=== PATIENT | female | born 1960 | race Hispanic/Latino ===

== ENCOUNTER → 2019-01-14 | Outpatient (CLI) | payer OTHER ==
[~2019-01-14] MED LIST: ASPI-1181 PO; ATOR20TA65 PO; CANA300T PO; CLOP75TA32 PO; IRBE1TAB43 PO; LATA7.5D OP; METF-444 PO
== END | disposition home or self-care (01) ==
LOC: OIH 12:23
PROVIDERS: ATTEND Internal Medicine Cardiovascular Disease
DX: Z13.6 Encounter for screening for cardiovascular disorders (principal)
CPT/HCPCS: 75571

== ENCOUNTER 2019-02-14 05:36 | Day surgery (SDC) | payer BC ==
[2019-02-12 13:59] VITALS: BP 119/68
[2019-02-12 14:05] LABS: BASOPHILS % (AUTO) 0.8 % (0.0-5.0); HEMATOCRIT 43.3 % (36-48); LYMPHOCYTES % (AUTO) 30.8 % (21.0-51.0); MEAN CORPUSCULAR HEMOGLOBIN 30.2 pg (27.0-33.0); MEAN CORPUSCULAR HGB CONC 34.1 g/dL (32.0-36.0); MEAN CORPUSCULAR VOLUME 88.7 fL (79-99); MONOCYTES % (AUTO) 5.3 % (3.0-13.0); NEUTROPHILS % (AUTO) 60.1 % (40.0-77.0); PLATELET COUNT (AUTO) 250 K/uL (130-400); RED BLOOD CELL COUNT(AUTO) 4.87 MIL/uL (4.00-5.50); RED CELL DISTRIBUTION WIDTH 13.7 % (11.0-15.5); WHITE BLOOD COUNT (AUTO) 5.1 K/uL (4.8-10.8)
[2019-02-12 14:08] LABS: APPEARANCE,URINE Clear (CLEAR); BILIRUBIN,URINE Negative (NEGATIVE); COLOR,URINE Yellow (YELLOW); GLUCOSE, URINE (UA) >=1000 mg/dL (NEGATIVE); KETONES,URINE Trace mg/dL (NEGATIVE); LEUKOCYTE ESTERASE ,URINE Negative (NEGATIVE); NITRATE,URINE Negative (NEGATIVE); OCCULT BLOOD,URINE Negative (NEGATIVE); PROTEIN,URINE Negative (NEGATIVE); UROBILINOGEN,URINE 0.2 mg/dL (0.2-1.0)
[2019-02-12 14:12] LABS: CREATININE 0.6 mg/dL (0.5-1.5); POTASSIUM 4.5 mmol/L (3.5-5.1)
[2019-02-12 14:57] LABS: INR 0.91 (0.85-1.15); PARTIAL THROMBOPLASTIN TIME 22.1 SEC (26.3-35.5); PROTHROMBIN TIME 9.4 SEC (9.6-11.6)
[2019-02-12 15:25] LABS: RBC,URINE 0-1 /HPF (0-1)
[2019-02-12 15:26] LABS: BACTERIA,URINE Rare /HPF (None Seen); MUCUS,URINE Few LPF (None Seen); SQUAMOUS EPITHELIAL CELL,UR 0-2 /HPF (0-2); YEAST,URINE BUDDING Few /HPF (None Seen)
--- NOTE | 2019-02-13 14:17 | NUR ---
NOTIFIED LIZ OF PTT 22.1, BUN 20 AND UA WITH WBC 2-5, AND FEW MUCUS, NO NEW ORDERS, OKAY TO PROCEED.
[~2019-02-14] VITALS: Ht 157.5 cm; Wt 65.1 kg
[2019-02-14] VITALS (10 sets, daily range): BP systolic 97–129; BP diastolic 58–75
[~2019-02-14 05:36] MED LIST changes: +ACETAMINOPHEN 325 MG TAB PO PRN; -LATA7.5D OP; +SODIUM CHLORIDE 0.9% 500ML 500 ML IV SCH
[2019-02-14] MEDS ORDERED: LATA7.5D OP (07:06)
[2019-02-14] MEDS ORDERED: SODIUM BICARB 50MEQ 50ML VIAL ONE (07:13)
[2019-02-14] MEDS ORDERED: NITROGLYCERIN 5 MG/ML 10 ML VIAL IV ONE (07:13)
[2019-02-14] MEDS ORDERED: LIDOCAINE HCL 2% 20ML ONE (07:14)
[2019-02-14] MEDS ORDERED: IODIXANOL 320 MG/ML 100 ML VIAL ONE (07:14)
[2019-02-14] MEDS ORDERED: SODIUM CHLORIDE 0.9% 1000ML 1,000 ML IV ONE (07:20)
[2019-02-14] MEDS ORDERED: SODIUM CHLORIDE 0.9% 1000ML 1,000 ML IV SCH (08:25)
[2019-02-14] MEDS ORDERED: GLUCAGON 1MG KIT 1 MG ML IM PRN (08:30)
[2019-02-14] MEDS ORDERED: DEXTROSE 50%-WATER 50 ML DISP.SYRIN IV PRN (08:30)
[2019-02-14] MEDS ORDERED: INSULIN HUMULIN R 100 UNIT/ML 3ML ONE (09:15)
[2019-02-14] MEDS ORDERED: INSULIN HUMULIN R 100 UNIT/ML 3ML SQ SCH (11:30)
== END 2019-02-14 13:00 | disposition home or self-care (01) ==
LOC: DAH 05:36
PROVIDERS: ATTEND Internal Medicine Cardiovascular Disease
DX: I65.23 Occlusion and stenosis of bilateral carotid arteries (principal); I70.0 Atherosclerosis of aorta; E78.5 Hyperlipidemia, unspecified; E11.9 Type 2 diabetes mellitus without complications; I10 Essential (primary) hypertension; Z79.84 Long term (current) use of oral hypoglycemic drugs; Z79.82 Long term (current) use of aspirin; Z79.899 Other long term (current) drug therapy; Z90.49 Acquired absence of other specified parts of digestive tract; Z90.710 Acquired absence of both cervix and uterus; Z98.890 Other specified postprocedural states; Z82.49 Family history of ischemic heart disease and other diseases of the circulatory system; Z83.3 Family history of diabetes mellitus
CPT/HCPCS: 36223; 36415; 71045; 80048; 81001; 82948 ×2; 85025; 85610; 85730; 93005; A4215; A4216; A4221; A4222; A4223 ×3; A4606; A4663; C1760; C1894; J1644; J1815; J3490 ×3; J7030 ×2; Q9967

== ENCOUNTER → 2019-04-28 | Outpatient (CLI) | payer BC ==
[~2019-04-28] VITALS: Ht 160 cm; Wt 64.4 kg
[~2019-04-28] MED LIST changes: -ACETAMINOPHEN 325 MG TAB PO PRN; -CANA300T PO; +EMPA10TA PO; +EMPA25TA PO; +LATA7.5D OP; +SODIUM CHLORIDE 0.9% 1000ML 1,000 ML IV SCH; -SODIUM CHLORIDE 0.9% 500ML 500 ML IV SCH
[2019-04-28 13:18] LABS: BASOPHILS % (AUTO) 0.8 % (0.0-5.0); EOSINOPHILS % (AUTO) 5.9 % (0.0-8.0); LYMPHOCYTES % (AUTO) 28.3 % (21.0-51.0); MEAN CORPUSCULAR HEMOGLOBIN 29.4 pg (27.0-33.0); MEAN CORPUSCULAR HGB CONC 32.9 g/dL (32.0-36.0); MEAN CORPUSCULAR VOLUME 89.6 fL (79-99); MONOCYTES % (AUTO) 5.3 % (3.0-13.0); NEUTROPHILS % (AUTO) 59.3 % (40.0-77.0); PLATELET COUNT (AUTO) 285 K/uL (130-400); RED BLOOD CELL COUNT(AUTO) 4.69 MIL/uL (4.00-5.50); RED CELL DISTRIBUTION WIDTH 13.3 % (11.0-15.5); WHITE BLOOD COUNT (AUTO) 4.9 K/uL (4.8-10.8)
[2019-04-28 13:27] LABS: CREATININE 0.5 mg/dL (0.5-1.5); POTASSIUM 3.8 mmol/L (3.5-5.1)
[2019-04-28 13:35] VITALS: BP 123/64
[2019-04-28 13:39] LABS: APPEARANCE,URINE Clear (CLEAR); BILIRUBIN,URINE Negative (NEGATIVE); COLOR,URINE Yellow (YELLOW); GLUCOSE, URINE (UA) >=1000 mg/dL (NEGATIVE); KETONES,URINE Negative (NEGATIVE); LEUKOCYTE ESTERASE ,URINE Negative (NEGATIVE); NITRATE,URINE Negative (NEGATIVE); OCCULT BLOOD,URINE Negative (NEGATIVE); PROTEIN,URINE Negative (NEGATIVE); UROBILINOGEN,URINE 0.2 mg/dL (0.2-1.0)
[2019-04-28 13:44] LABS: INR 0.92 (0.85-1.15); PARTIAL THROMBOPLASTIN TIME 22.8 SEC (26.3-35.5); PROTHROMBIN TIME 9.7 SEC (9.6-11.6)
[2019-04-28 14:06] LABS: BACTERIA,URINE Rare /HPF (None Seen); RBC,URINE 0-1 /HPF (0-1); SQUAMOUS EPITHELIAL CELL,UR Rare /HPF (0-2); WBC,URINE 0-1 /HPF (0-1)
== END | disposition home or self-care (01) ==
LOC: DAH 10:00 → EDSTATUS 12:00
PROVIDERS: ATTEND Internal Medicine Cardiovascular Disease
DX: I65.23 Occlusion and stenosis of bilateral carotid arteries (principal)
CPT/HCPCS: 36415; 71045; 80048; 81001; 85025; 85610; 85730; 86850; 86900; 86901; 86922; 93005

== ENCOUNTER 2019-11-21 08:53 | Inpatient (IN) | payer BC ==
[2019-11-19 10:26] LABS: BASOPHILS % (AUTO) 0.5 % (0.0-5.0); EOSINOPHILS % (AUTO) 2.7 % (0.0-8.0); HEMATOCRIT 43.7 % (36-48); LYMPHOCYTES % (AUTO) 28.2 % (21.0-51.0); MEAN CORPUSCULAR HEMOGLOBIN 30.2 pg (27.0-33.0); MEAN CORPUSCULAR HGB CONC 34.1 g/dL (32.0-36.0); MEAN CORPUSCULAR VOLUME 88.6 fL (79-99); MONOCYTES % (AUTO) 5.5 % (3.0-13.0); NEUTROPHILS % (AUTO) 62.6 % (40.0-77.0); PLATELET COUNT (AUTO) 272 K/uL (130-400); RED BLOOD CELL COUNT(AUTO) 4.93 MIL/uL (4.00-5.50); RED CELL DISTRIBUTION WIDTH 12.6 % (11.0-15.5); WHITE BLOOD COUNT (AUTO) 5.8 K/uL (4.8-10.8)
[2019-11-19 10:41] LABS: INR 0.92 (0.85-1.15); PARTIAL THROMBOPLASTIN TIME 24.6 SEC (26.3-35.5)
[2019-11-19 10:43] LABS: ALBUMIN 4.4 g/dL (3.5-5.0); BILIRUBIN,TOTAL 0.5 mg/dL (0.2-1.0); CREATININE 0.5 mg/dL (0.5-1.5); POTASSIUM 4.1 mmol/L (3.5-5.1); TOTAL PROTEIN, SERUM 8.1 g/dL (6.0-8.3)
[2019-11-20 15:49] VITALS: BP 174/82
[~2019-11-21] VITALS: Ht 157.5 cm; Wt 65.3 kg
[2019-11-21] VITALS (18 sets, daily range): BP systolic 106–166; BP diastolic 53–93
[2019-11-21] MEDS: CEFAZOLIN SODIUM 1 GM VIAL IVP SCH ×3 (06:00→19:08)
[~2019-11-21 08:53] MED LIST changes: -ASPI-1181 PO; +ASPI-1443 PO; -EMPA10TA PO; -SODIUM CHLORIDE 0.9% 1000ML 1,000 ML IV SCH
[2019-11-21] MEDS ORDERED: SODIUM CHLORIDE 0.9% 1000ML 1,000 ML IV ONE (09:22)
[2019-11-21] MEDS ORDERED: FENTANYL CITRATE PF 50 MCG/1 ML 2ML VIAL ONE ×2 (09:44→11:28)
[2019-11-21] MEDS ORDERED: LIDOCAINE PF 2% 5ML ABBOJECT ONE ×2 (09:44→09:45)
[2019-11-21] MEDS ORDERED: DEXAMETHASONE SOD PHOSPHATE 10MG/ML 1ML VIAL ONE (09:44)
[2019-11-21] MEDS ORDERED: SUCCINYLCHOLINE CHLORIDE 20 MG/ML 10 ML VIAL ONE ×2 (09:44→09:55)
[2019-11-21] MEDS ORDERED: ONDANSETRON HCL 4 MG/2 ML VIAL ONE (09:44)
[2019-11-21] MEDS ORDERED: GLYCOPYRROLATE 1 MG/5 ML SYRINGE ONE (09:44)
[2019-11-21] MEDS ORDERED: PROPOFOL 10 MG/ML 20ML VIAL IV ONE ×2 (09:44→11:45)
[2019-11-21] MEDS ORDERED: NEOSTIGMINE 5MG/5ML SYR IV ONE (09:45)
[2019-11-21] MEDS ORDERED: MIDAZOLAM HCL 1 MG/ML 2ML VIAL ONE (09:45)
[2019-11-21] MEDS ORDERED: ROCURONIUM 10MG/1ML SYR 10 MG/ML ML ONE (09:45)
[2019-11-21] MEDS ORDERED: CEFAZOLIN SODIUM 1 GM VIAL ONE (09:48)
[2019-11-21] MEDS ORDERED: PHENYLEPHRINE HCL 10 MG/ML 1ML VIAL IV ONE ×3 (09:51→09:52)
[2019-11-21] MEDS: METFORMIN HCL 500 MG TABLET PO SCH ×2 (11:22→20:14)
[2019-11-21] MEDS: HYDROCHLOROTHIAZIDE PO SCH (11:24)
[2019-11-21] MEDS: IRBESARTAN PO SCH (11:24)
[2019-11-21] MEDS: [UNRECOGNIZED DRUG - OTHER] PO SCH (11:24)
[2019-11-21] MEDS ORDERED: TRAMADOL HCL 50 MG TABLET PO PRN ×2 (11:30)
[2019-11-21] MEDS ORDERED: POTASSIUM CHLORIDE 20MEQ/100ML 100 ML IV PRN (11:30)
[2019-11-21] MEDS ORDERED: ACETAMINOPHEN 325 MG TAB PO PRN (11:30)
[2019-11-21] MEDS ORDERED: GLUCAGON 1MG KIT 1 MG ML IM PRN (11:30)
[2019-11-21] MEDS ORDERED: POTASSIUM CHLORIDE 10% ELIXIR 20 MEQ/15 ML UDCUP PO PRN (11:30)
[2019-11-21] MEDS ORDERED: POTASSIUM CHLORIDE 20 MEQ ERTAB PO PRN (11:30)
[2019-11-21] MEDS ORDERED: DEXTROSE 50%-WATER 50 ML DISP.SYRIN IV PRN (11:30)
[2019-11-21] MEDS ORDERED: LIDOCAINE HCL-MPF 1% 2ML VIAL IV PRN (11:30)
[2019-11-21] MEDS ORDERED: SODIUM BICARB 8.4% 50ML SYRINGE ONE (11:41)
[2019-11-21] MEDS ORDERED: PROTAMINE SULFATE 10 MG/ML 25ML VIAL IV ONE (11:44)
[2019-11-21] MEDS ORDERED: NITROGLYCERIN 50 MG/D5% WATER 1 BOT ONE (11:44)
[2019-11-21] MEDS: PANTOPRAZOLE SODIUM 40 MG TABLET.DR PO SCH (11:44)
[2019-11-21] MEDS ORDERED: LABETALOL HCL 5 MG/ML 20ML VIAL IV ONE (11:44)
[2019-11-21] MEDS: CLOPIDOGREL BISULFATE 75 MG TAB PO SCH (16:16)
[2019-11-21] MEDS: KETOROLAC TROMETHAMINE 30MG/ML IV SCH ×2 (16:25→20:19)
[2019-11-21] MEDS: ASPIRIN 81 MG EC TAB PO SCH (16:26)
[2019-11-21] MEDS: INSULIN HUMULIN R 100 UNIT/ML 3ML SQ SCH (21:00)
[2019-11-21] MEDS ORDERED: ATORVASTATIN CALCIUM 20 MG TABLET PO SCH (21:00)
[2019-11-21] MEDS ORDERED: LATANOPROST 2.5 ML DROPS OP SCH (21:00)
[2019-11-22] VITALS (9 sets, daily range): BP systolic 95–122; BP diastolic 44–60
[2019-11-22] MEDS: CEFAZOLIN SODIUM 1 GM VIAL IVP SCH ×2 (03:00→11:38)
[2019-11-22] MEDS: KETOROLAC TROMETHAMINE 30MG/ML IV SCH ×3 (03:00→14:07)
[2019-11-22 03:53] LABS: HEMATOCRIT 38.1 % (36-48); MEAN CORPUSCULAR HEMOGLOBIN 30.2 pg (27.0-33.0); MEAN CORPUSCULAR HGB CONC 34.1 g/dL (32.0-36.0); MEAN CORPUSCULAR VOLUME 88.4 fL (79-99); RED BLOOD CELL COUNT(AUTO) 4.31 MIL/uL (4.00-5.50); RED CELL DISTRIBUTION WIDTH 12.7 % (11.0-15.5); WHITE BLOOD COUNT (AUTO) 8.4 K/uL (4.8-10.8)
[2019-11-22 04:06] LABS: CREATININE 0.4 mg/dL (0.5-1.5); POTASSIUM 3.3 mmol/L (3.5-5.1)
[2019-11-22] MEDS: INSULIN HUMULIN R 100 UNIT/ML 3ML SQ SCH ×2 (07:30→11:54)
[2019-11-22] MEDS: ASPIRIN 81 MG EC TAB PO SCH (08:39)
[2019-11-22] MEDS: PANTOPRAZOLE SODIUM 40 MG TABLET.DR PO SCH (08:39)
[2019-11-22] MEDS: CLOPIDOGREL BISULFATE 75 MG TAB PO SCH (08:40)
[2019-11-22] MEDS: METFORMIN HCL 500 MG TABLET PO SCH (09:00)
[2019-11-22] MEDS: [UNRECOGNIZED DRUG - OTHER] PO SCH (09:00)
[2019-11-22] MEDS: HYDROCHLOROTHIAZIDE PO SCH (09:00)
[2019-11-22] MEDS: IRBESARTAN PO SCH (09:00)
[2019-11-22] MEDS ORDERED: EMPAGLIFLOZIN 25 MG PO SCH (09:00)
--- NOTE | 2019-11-22 12:00 | NUR ---
INITIAL: Spoke w pt via phone. Pt mentions that she lives w spouse, prior to admission she was independent w ambulation and ADLs. She does not receive any services or own any DME. Pt states that she feels safe and comfortable to return home at dc. States her dtr is already here to pick her up. No further dc needs at this time. Addendum: 11/22/19 at 1613 by RIGOBERTO BEAVER CM Amended: Links added.
== END 2019-11-22 14:00 | disposition home or self-care (01) | DRG 39 ==
LOC: DAHIP 09:09 → EDSTATUS 09:23 → DAHIP 13:00
PROVIDERS: ADMIT Internal Medicine; ATTEND Internal Medicine
PROC: 03CL0ZZ Extirpation of Matter from Left Internal Carotid Artery, Open Approach (ICD-10-PCS; 2019-11-21)
PROC: 03UJ0KZ Supplement Left Common Carotid Artery with Nonautologous Tissue Substitute, Open Approach (ICD-10-PCS; 2019-11-21)
PROC: 03UL0KZ Supplement Left Internal Carotid Artery with Nonautologous Tissue Substitute, Open Approach (ICD-10-PCS; 2019-11-21)
PROC: 03CJ0ZZ Extirpation of Matter from Left Common Carotid Artery, Open Approach (ICD-10-PCS; principal; 2019-11-21 11:00)
DX: I65.22 Occlusion and stenosis of left carotid artery (principal); F17.200 Nicotine dependence, unspecified, uncomplicated; E78.5 Hyperlipidemia, unspecified; I25.10 Atherosclerotic heart disease of native coronary artery without angina pectoris; E78.00 Pure hypercholesterolemia, unspecified; Z20.828 Contact with and (suspected) exposure to other viral communicable diseases; I10 Essential (primary) hypertension; Z79.02 Long term (current) use of antithrombotics/antiplatelets; Z79.84 Long term (current) use of oral hypoglycemic drugs; Z79.899 Other long term (current) drug therapy
CPT/HCPCS: 36415; 71045; 80048; 80053; 82948; 85025; 85027; 85610; 85730; 86850; 86900; 86901; 93005; 97039; G0378; J0330; J0690; J1100; J1644; J1885; J2001; J2250; J2370; J2405; J2704; J2710; J2720; J3010; J3490; J7030; U0003